=== PATIENT | female | born 1985 | race Caucasian/White ===

== ENCOUNTER 2022-05-29 01:11 | Emergency (ER) | payer OTHER ==
[~2022-05-29] VITALS: Ht 162.6 cm; Wt 71.3 kg
[2022-05-29 01:11] VITALS: BP 128/77
[2022-05-29] MEDS ORDERED: IBUPROFEN 800 MG TAB PO ONE (03:15)
[2022-05-29] MEDS ORDERED: IBUP800T26 PO (04:33)
[2022-05-29] MEDS ORDERED: DICL1GEL50 TD (04:33)
== END 2022-05-29 05:07 | disposition home or self-care (01) ==
LOC: ER 01:11 → EEVIPCON 01:11 → ER 04:47
DX: S93.402A Sprain of unspecified ligament of left ankle, initial encounter (principal); W10.8XXA Fall (on) (from) other stairs and steps, initial encounter; Y93.89 Activity, other specified; Y92.89 Other specified places as the place of occurrence of the external cause; Y99.8 Other external cause status
CPT/HCPCS: 73610